=== PATIENT | male | born 1990 | race American Indian/Alaskan Native ===

== ENCOUNTER 2020-03-21 07:47 | Emergency (ER) | payer SELFPAY ==
[2020-03-21] MEDS ORDERED: KETOROLAC 30 MG/1 ML INJ IV ONE (08:00)
[2020-03-21] MEDS ORDERED: SODIUM CHLORIDE 0.9% 1000 ML 1,000 ML IV ONE (08:00)
--- NOTE | 2020-03-21 08:19 | Emergency Department Report ---
ED Abdominal Pain HPI - General Chief Complaint: Abdominal Pain Stated Complaint: ABD PAIN Time Seen by Provider: 03/21/20 07:54 Source: patient Mode of arrival: Ambulatory Limitations: No Limitations - History of Present Illness Initial Comments: This is a 29-year-old man who presents to the emergency department with acute abdomen pain. He is a very poor historian and poorly cooperative with answering questions. He presents somewhat writhing. He is answering limited questions and fails to respond yes or no to simple binary type. Notwithstanding this, he woke up or was awoken by abdominal pain which appears to be in the periumbilical area/diffuse. After much prodding he states that it does not involve his back. He very poorly localizes where the pain was. He seems to be indicating that he was fine until the pain awoke him this morning. He is not reporting any associated vomiting. He is answering very few questions. Patient states that he takes no medicine or at least response to the negative. Response to the positive that he has been in the hospital before. He apparently declines to provide further information regarding his past medical history. He does however state that he has not had pain like this prior. MD Complaint: abdominal pain -: During the night Location: diffuse, periumbilical Radiation: none (As far as I can ascertain) Migration to: no migration Severity: severe Severity scale (0 -10): 10 Quality: other (Will not describe) Consistency: constant Context: other (Nothing known) Associated Symptoms: other (Will not cooperate with history) - Related Data Previous Rx's Medication Instructions Recorded Last Taken Type Lansoprazole [Prevacid] 15 mg PO BID #30 cap 03/21/20 Unknown Rx ED Review of Systems ROS: Stated complaint: ABD PAIN Other details as noted in HPI Comment: Unobtainable due to pts medical conditions ED Past Medical Hx - Past Medical History Previous Medical History?: No Additional medical history: Based on limited information - Social History Smoking Status: Never Smoker - Medications Home Medications: Home Medications Medication Instructions Recorded Confirmed Last Taken Type Lansoprazole [Prevacid] 15 mg PO BID #30 cap 03/21/20 Unknown Rx ED Physical Exam - General Limitations: Physical Limitation (And poor cooperation) General appearance: other (Distressed and rolling) - Head Head exam: Present: atraumatic - Eye Eye exam: Present: EOMI. Absent: scleral icterus Pupils: Present: miosis (Somewhat small pupils but not pinpoint) - ENT ENT exam: Present: normal exam (Grossly) - Neck Neck exam: Present: normal inspection. Absent: meningismus - Respiratory Respiratory exam: Present: normal lung sounds bilaterally. Absent: respiratory distress - Cardiovascular Cardiovascular Exam: Present: normal rhythm. Absent: systolic murmur, diastolic murmur - GI/Abdominal GI/Abdominal exam: Present: soft, normal bowel sounds. Absent: distended, tenderness (Not obviously tender to light palpation. Limited exam.), guarding (Not apparent), rebound (Not apparent), rigid, organomegaly, mass, bruit, pulsatile mass, hernia - Extremities Exam Extremities exam: Present: normal inspection - Back Exam Back exam: Present: normal inspection - Neurological Exam Neurological exam: Present: alert, oriented X3 (I presume so. Does not answer questions.), CN II-XII intact. Absent: motor sensory deficit - Skin Skin exam: Present: warm, dry, intact, normal color, other (Somewhat sweaty but not grossly diaphoretic). Absent: rash ED Course Vital Signs 03/21/20 03/21/20 03/21/20 07:52 08:40 09:30 Temperature 97.8 F Pulse Rate 86 Respiratory 18 Rate Blood Pressure 184/100 131/88 126/69 Blood Pressure 184/110 [Right] O2 Sat by Pulse 100 91 100 Oximetry - Reevaluation(s) Reevaluation #1: Pain is resolved. Exam is benign. Patient now states he ate at [employer] at 4 AM and thinks that may have been related. He has not had vomiting or diarrhea though. 03/21/20 10:43 ED Medical Decision Making - Lab Data Result diagrams: 03/21/20 08:18 03/21/20 08:18 Laboratory Results - last 24 hr 03/21/20 03/21/20 03/21/20 08:18 08:18 08:18 WBC 12.6 H RBC 5.17 H Hgb 15.1 Hct 46.6 H MCV 90 MCH 29 MCHC 32 RDW 14.4 Plt Count 175 Lymph % (Auto) 18.5 [place] % (Auto) 5.9 Eos % (Auto) 1.4 Baso % (Auto) 0.6 Lymph # 2.3 [place] # 0.7 Eos # 0.2 Baso # 0.1 Seg Neutrophils % 73.6 H Seg Neutrophils # 9.3 H PT 12.5 INR 0.92 APTT 32.8 Sodium 142 Potassium 3.4 L Chloride 102.5 Carbon Dioxide 23 Anion Gap 20 BUN 9 Creatinine 1.1 Estimated GFR > 60 BUN/Creatinine Ratio 8 Glucose 101 H Calcium 9.6 Total Bilirubin 0.20 Direct Bilirubin < 0.2 Indirect Bilirubin 0.0 AST 50 H ALT 29 Alkaline Phosphatase 102 Total Protein 7.1 Albumin 4.4 Albumin/Globulin Ratio 1.6 Lipase 56 Blood Type Antibody Screen 03/21/20 08:18 WBC RBC Hgb Hct MCV MCH MCHC RDW Plt Count Lymph % (Auto) [place] % (Auto) Eos % (Auto) Baso % (Auto) Lymph # [place] # Eos # Baso # Seg Neutrophils % Seg Neutrophils # PT INR APTT Sodium Potassium Chloride Carbon Dioxide Anion Gap BUN Creatinine Estimated GFR BUN/Creatinine Ratio Glucose Calcium Total Bilirubin Direct Bilirubin Indirect Bilirubin AST ALT Alkaline Phosphatase Total Protein Albumin Albumin/Globulin Ratio Lipase Blood Type B POSITIVE Antibody Screen Negative - Medical Decision Making A broad standard differential diagnosis for the acute abdomen was considered and excluded. Critical care attestation.: If time is entered above; I have spent that time in minutes in the direct care of this critically ill patient, excluding procedure time. ED Disposition Clinical Impression: Acute abdominal pain Disposition: DC-01 TO HOME OR SELFCARE Is pt being admited?: No Does the pt Need Aspirin: No Condition: Stable Instructions: Abdominal Pain (ED) Additional Instructions: Light diet advance as tolerated. Follow-up with [facility]. Prescriptions: Lansoprazole [Prevacid] 15 mg PO BID #30 cap Referrals: [facility] [Provider Group] - 2-3 Days Time of Disposition: 10:45
[2020-03-21 08:41] LABS: Basophils # (Auto) 0.1 K/mm3 (0.0-0.1); Basophils % (Auto) 0.6 % (0.0-1.8); Eosinophils # (Auto) 0.2 K/mm3 (0.0-0.4); Eosinophils % (Auto) 1.4 % (0.0-4.3); Hematocrit 46.6 % (35.5-45.6); Hemoglobin 15.1 gm/dl (11.8-15.2); Lymphocytes # (Auto) 2.3 K/mm3 (1.2-5.4); Lymphocytes % (Auto) 18.5 % (13.4-35.0); Mean Corpuscular HGB Conc 32 % (32-34); Mean Corpuscular Volume 90 fl (84-94); Monocytes # (Auto) 0.7 K/mm3 (0.0-0.8); Monocytes % (Auto) 5.9 % (0.0-7.3); Platelet Count 175 K/mm3 (140-440); Red Blood Count 5.17 M/mm3 (3.65-5.03); Red Cell Distribution Width 14.4 % (13.2-15.2)
[2020-03-21 08:53] LABS: INR 0.92 (0.87-1.13)
[2020-03-21 08:54] LABS: Partial Thromboplastin Time 32.8 Sec. (24.2-36.6)
[2020-03-21 09:03] LABS: Alanine Aminotransferase 29 units/L (7-56); Albumin 4.4 g/dL (3.9-5); BUN/Creatinine Ratio 8; Blood Urea Nitrogen 9 mg/dL (9-20); Calcium 9.6 mg/dL (8.4-10.2); Hemolysis Index 27
--- NOTE | 2020-03-21 09:03 | XRay Report ---
CHEST 1 VIEW INDICATION: Hypertension. COMPARISON: None FINDINGS: Support devices: None. Heart: Within normal limits. Lungs/Pleura: No acute air space or interstitial disease. Additional findings: None. IMPRESSION: No acute findings. Signer Name: Gomez Best Jr, MD Signed: 03/21/2020 8:59 AM Workstation Name: [id number]
[2020-03-21 09:06] LABS: Bilirubin,Direct < 0.2 mg/dL (0-0.2)
--- NOTE | 2020-03-21 10:11 | Cat Scan Report ---
CT ABDOMEN WITH CONTRAST HISTORY: Diffuse abdominal pain. COMPARISON: None. TECHNIQUE: CT images of the abdomen were obtained following administration of intravenous contrast. S agittal and coronal reformatted images. All CT scans at this location are performed using CT dose red uction for ALARA by means of automated exposure control. CONTRAST: 100 ml of intravenous contrast administered. FINDINGS: Abdomen: The liver, biliary system, pancreas, spleen, kidneys and adrenal glands are unremarkable. T he visualized bowel loops are normal caliber and wall thickness. No evidence for obstruction or focal inflammation. Normal appendix. The aorta and vascular structures are widely patent. No evidence for free fluid, free air or adenopathy. Lungs/bones: The lung bases are clear. Normal heart size. Normal bony structures. IMPRESSION: Unremarkable examination. Signer Name: Gomez Best Jr, MD Signed: 03/21/2020 10:07 AM Workstation Name: [id number]
[2020-03-21 10:54] LABS: Bilirubin,Urine NEG (Negative); Blood,Urine NEG (Negative); Color,Urine Colorless (Yellow); Protein,Urine <15 mg/dL mg/dL (Negative); Urobilinogen,Urine < 2.0 mg/dL (<2.0); WBC,Urine < 1.0 /HPF (0.0-6.0)
[2020-03-21 10:59] LABS: Amphetamine Screen,Urine Negative; Benzodiazepines Screen,Urine Negative; Cocaine Screen,Urine Negative; Methadone Screen,Urine Negative; Opiate Screen,Urine Negative
[2020-03-21 11:11] LABS: Cannabinoid Screen,Urine Positive
[2020-03-21 11:47] VITALS: BP 110/69
== END 2020-03-21 11:46 | disposition home or self-care (01) ==
LOC: ED 07:47
DX: R10.84 Generalized abdominal pain (principal); Z79.899 Other long term (current) drug therapy
CPT/HCPCS: 36415; 71045; 74160; 80048; 80076; 80307; 81001; 83690; 85025; 85610; 85730; 86850; 86900; 86901; 96361; 96374; 99284; J1885; J7030; Q9967